=== PATIENT | male | born 1975 | race Caucasian/White ===

== ENCOUNTER 2017-11-07 12:50 | Emergency (ER) | payer OTHER ==
[2017-11-07 13:04] VITALS: BMI 29.9
--- NOTE | 2017-11-07 13:51 | PDOC ---
History of Present Illness - General History Source: Patient Exam Limitations: No Limitations <Danny Neves - Last Filed: 11/07/17 15:39> <Trevon Perez - Last Filed: 11/07/17 16:40> <Danette Denton - Last Filed: 11/07/17 19:11> - General Chief Complaint: Chest Pain Stated Complaint: CHEST PAIN Time Seen by Provider: 11/07/17 13:37 - History of Present Illness Initial Comments: 11/07/17 15:39 The patient is a 42 year old male with a significant PMH of HTN and hyperlipidemia who presents to the emergency department with left sided chest pain beginning approximately 2 hours ago. The patient describes his chest pain as intermittent brief episodes of a burning sensation localized in the left side with no radiation, which is non-exertional and has no aggravating or remitting factors. He reports sitting on the couch this morning and feeling a sudden onset of this burning left sided chest pain which lasted about 3 seconds before resolving. The patient also endorses some nausea since this morning while trying to eat eggs but denies vomiting. Pt did note that he had 3 margaritas last night and isnt sure if that had anything to do with it. The patient reports missing his HTN medications yesterday and drinking about 3 margaritas last night. He reports taking his medication after his initial episode of chest pain this morning. The patient notes receiving an Echo about 3 months ago which was normal. The patient denies shortness of breath or diaphoresis. He denies palpitations. He denies recent travel or leg swelling. Family history is pertinent for HTN. The patient denies headache and dizziness. Denies fever, chills, diarrhea and constipation. Denies dysuria, frequency, urgency and hematuria. Allergies: NKA Past surgical history: None reported. Social history: Social alcohol use. No reported cigarette or drug use. Cardio: Dr. Rodriguez (in [place]) (Danny Neves) Past History <Danny Neves - Last Filed: 11/07/17 15:39> - Past Medical History COPD: No HTN: Yes Hypercholesterolemia: Yes - Suicide/Smoking/Psychosocial Hx Smoking History: Never smoked Have you smoked in the past 12 months: No Information on smoking cessation initiated: No Hx Alcohol Use: No Drug/Substance Use Hx: No Substance Use Type: None <Trevno Perez - Last Filed: 11/07/17 16:40> <Danette Denton - Last Filed: 11/07/17 19:11> - Past Medical History Allergies/Adverse Reactions: Allergies Allergy/AdvReac Type Severity Reaction Status Date / Time No Known Allergies Allergy Verified 01/22/16 16:46 Home Medications: Ambulatory Orders Amlodipine Besylate/Benazepril [Lotrel 10-20 mg Capsule] 1 cap PO DAILY Atorvastatin Calcium 80 mg PO DAILY 11/07/17 Ranitidine HCl [Zantac 75] 75 mg PO DAILY #14 tablet 11/07/17 Review of Systems - Review of Systems Able to Perform ROS?: Yes <Danny Neves - Last Filed: 11/07/17 15:39> <Trevon Perez - Last Filed: 11/07/17 16:40> <Danette Denton - Last Filed: 11/07/17 19:11> - Review of Systems Comments:: 11/07/17 15:40 All other systems reviewed and are negative except noted in HPI (Danny Neves) *Physical Exam <Danny Neves - Last Filed: 11/07/17 15:39> <Trevon Perez - Last Filed: 11/07/17 16:40> <Danette Denton - Last Filed: 11/07/17 19:11> - Vital Signs Last Vital Signs Temp Pulse Resp BP Pulse Ox 98.1 F 98 H 16 137/85 100 11/07/17 18:26 11/07/17 18:26 11/07/17 18:26 11/07/17 18:26 11/07/17 18:26 - Physical Exam Comments: 11/07/17 15:40 GENERAL: The patient is awake, alert, and fully oriented, Nontoxic - in no acute distress. HEAD: Normocephalic, atraumatic. EYES: extraocular movements intact, sclera anicteric, conjunctiva clear. ENT: Normal voice, Moist mucous membranes. NECK: Normal range of motion, supple LUNGS: Breath sounds equal, clear to auscultation bilaterally. No wheezes, no rhonchi, no rales. HEART: Regular rate and rhythm, without murmur, rub or gallop. ABDOMEN: Soft, nontender, normoactive bowel sounds. No guarding, no rebound.No CVA tenderness EXTREMITIES: Normal range of motion, no edema. No clubbing or cyanosis. No cords , erythema, or tenderness. NEUROLOGICAL: No facial asymmetry, Normal speech, PSYCH: Normal mood, normal affect. SKIN: Warm, Dry, normal turgor. (Danny Neves) Heart Score/ECG Review <Danny Neves - Last Filed: 11/07/17 15:39> <Trevon Perez - Last Filed: 11/07/17 16:40> <Danette Denton - Last Filed: 11/07/17 19:11> - ECG Impressions Comment:: 11/07/17 13:55 Twelve-lead EKG was performed and reviewed by me. There is normal sinus rhythm with a normal rate. rate of 93 Left axis devaition (Trevon Perez) ED Treatment Course - LABORATORY CBC & Chemistry Diagram: 11/07/17 14:11 11/07/17 14:11 <Danny Neves - Last Filed: 11/07/17 15:39> - LABORATORY CBC & Chemistry Diagram: 11/07/17 14:11 11/07/17 14:11 <Trevon Perez - Last Filed: 11/07/17 16:40> - LABORATORY CBC & Chemistry Diagram: 11/07/17 14:11 11/07/17 14:11 <Danette Denton - Last Filed: 11/07/17 19:11> - ADDITIONAL ORDERS Additional order review: Laboratory Results 11/07/17 11/07/17 18:10 14:11 Sodium 140 Potassium 3.9 Chloride 101 Carbon Dioxide 27 Anion Gap 12 BUN 12 Creatinine 1.1 Creat Clearance w eGFR > 60 Random Glucose 111 H Calcium 9.1 Total Bilirubin 0.4 AST 22 ALT 32 Alkaline Phosphatase 133 H Creatine Kinase 262 283 Creatine Kinase Index 0.9 CK-MB (CK-2) 2.605 Troponin I < 0.02 < 0.02 Total Protein 8.1 Albumin 4.0 Lipase 79 11/07/17 14:11 RBC 5.39 MCV 84.9 MCHC 34.0 RDW 13.3 MPV 8.5 Neutrophils % 71.2 Lymphocytes % 20.1 Monocytes % 7.0 Eosinophils % 1.3 Basophils % 0.4 - Medications Given in the ED: ED Medications Discontinued Medications Generic Name Dose Route Start Last Admin Trade Name Wilfredo PRN Reason Stop Dose Admin Al Hydroxide/Mg Hydroxide 30 ml 11/07/17 13:54 11/07/17 14:24 Mylanta Suspension - PO 11/07/17 13:55 30 ml ONCE ONE Administration Aspirin 162 mg 11/07/17 13:54 11/07/17 14:24 Asa - PO 11/07/17 13:55 162 mg ONCE ONE Administration Famotidine/Sodium Chloride 20 50 mls @ 100 mls/hr 11/07/17 13:54 11/07/17 14: 24 mg/ Miscellaneous IVPB 11/07/17 14:23 100 mls/hr ONCE ONE Administration Medical Decision Making <Danny Neves - Last Filed: 11/07/17 15:39> <Trevon Perez - Last Filed: 11/07/17 16:40> <Danette Denton - Last Filed: 11/07/17 19:11> - Medical Decision Making 11/07/17 14:17 42y M hx of htn, hl, presents with complaint of L sided chest pain. Pt describes the pain as a burning pain in the L chest that is nonradiating, intermittnt, lasting for a fe seconds before resolving without associated n/v, diaphoresis, sob. No prior episodes of this pain in the past. No worsening o fpain on ambulation/exertion. Pt currently asypmtomatic. pt ornelas snote he drank a couple of margaritas last night, and felt mildly nauesu when he was eating breakfast this morning. pts exam unremarkble and pt is in no distress ddx includes pancreatitis, gastritis, acs will ck cbc, cmp, lipase will give pepcid/maalox will give asa ekg nonischemic will obtian trop x 2 will reassess A portion of this note was documented by scribe services under my direction. I have reviewed the details of the note, within reason, and agree with the documentation with the following case summary and management plan written by me 11/07/17 16:32 The patient's blood work was unremarkable. The patient remains asymptomatic Will obtain repeat troponin at 6pm. if neg will dc pt with pmd fu Will signout the patient to Dr. Denton to follow up with repeat troponin reassess the patient (Trevon Perez) *DC/Admit/Observation/Transfer <Danny Neves - Last Filed: 11/07/17 15:39> <Trevon Perez - Last Filed: 11/07/17 16:40> <BertinDanette Yennifer - Last Filed: 11/07/17 19:11> Diagnosis at time of Disposition: Atypical chest pain Gastritis Qualifiers: Gastritis type: unspecified gastritis Chronicity: unspecified Gastritis bleeding: without bleeding Qualified Code(s): K29.70 - Gastritis, unspecified, without bleeding - Discharge Dispostion Disposition: HOME Condition at time of disposition: Stable - Prescriptions Prescriptions: Ranitidine HCl [Zantac 75] 75 mg PO DAILY #14 tablet - Patient Instructions Printed Discharge Instructions: DI for Atypical Chest Pain Additional Instructions: please follow up with your mattress stuffer - Attestations Scribe Attestion: 11/07/17 15:40 Documentation prepared by Danny Neves, acting as medical office manager for Trevon Perez MD. (Danny Neves)
[2017-11-07] MEDS ORDERED: FAMOTIDINE 20 MG/50 ML IVPB 20 MG in PREMIX 50 IVPB ONE (13:54)
[2017-11-07] MEDS ORDERED: MAG HYDROX/AL HYDROX/SIMETH 355 ML ORAL.SUSP PO ONE (13:54)
[2017-11-07] MEDS ORDERED: ASPIRIN 81 MG CHEWABLE TABLETS PO ONE (13:54)
[2017-11-07] MEDS ORDERED: FAMOTIDINE 20 MG/50 ML IVPB 20 MG/50 ML MG IVPB ONE (14:02)
[2017-11-07] MEDS ORDERED: ASPIRIN 81 MG CHEWABLE TABLETS ONE (14:02)
[2017-11-07] MEDS ORDERED: MAG HYDROX/AL HYDROX/SIMETH 30 ML UNIT-DOSE CUP ONE (14:02)
[2017-11-07 14:29] LABS: BASO % 0.4 % (0-2.0); EOS % 1.3 % (0-4.5); HEMATOCRIT 45.7 % (35.4-49); HEMOGLOBIN 15.6 GM/dL (11.7-16.9); LYMPH % 20.1 % (8-40); MCH 28.9 pg (25.7-33.7); MEAN CELL VOLUME 84.9 fl (80-96); MEAN PLT VOLUME 8.5 fl (7.5-11.1); NEUT % 71.2 % (42.8-82.8); PLATELET COUNT 208 K/MM3 (134-434); RBC 5.39 M/mm3 (4.00-5.60); RDW 13.3 % (11.9-15.9)
[2017-11-07 14:54] LABS: ANION GAP 12 (8-16); BILIRUBIN,TOTAL 0.4 mg/dL (0.2-1.0); BLOOD UREA NITROGEN 12 mg/dL (7-18); CALCIUM 9.1 mg/dL (8.5-10.1); CHLORIDE 101 mmol/L (98-107); CO2 27 mmol/L (21-32); CREATININE 1.1 mg/dL (0.7-1.3); GLUCOSE,RANDOM 111 mg/dL (74-106); LIPASE 79 U/L (73-393); POTASSIUM 3.9 mmol/L (3.5-5.1); SGOT/AST 22 U/L (15-37); SGPT/ALT 32 U/L (12-78); SODIUM 140 mmol/L (136-145); TOT PROT 8.1 g/dl (6.4-8.2)
[2017-11-07 14:57] LABS: ALK PHOS 133 U/L (45-117)
[2017-11-07 18:27] VITALS: BP 137/85; PULSE 98; TEMP 98.1
--- NOTE | 2017-11-08 10:46 | EKG ---
Test Reason : Blood Pressure : / mmHG Vent. Rate : 093 BPM Atrial Rate : 093 BPM P-R Int : 172 ms QRS Dur : 090 ms QT Int : 356 ms P-R-T Axes : 061 -43 053 degrees QTc Int : 442 ms NORMAL SINUS RHYTHM LEFT AXIS DEVIATION ABNORMAL ECG NO PREVIOUS ECGS AVAILABLE Confirmed by KELSEY RAMSAY, MARIZA ([id number]) on 11/08/2017 10:46:15 AM Referred By: Confirmed By:MARIZA COLE MD
== END 2017-11-07 19:25 | disposition home or self-care (01) ==
LOC: JER 12:50
PROC: 3E033GC Introduction of Other Therapeutic Substance into Peripheral Vein, Percutaneous Approach (ICD-10-PCS; principal; 2017-11-07)
DX: R07.89 Other chest pain (principal); K29.70 Gastritis, unspecified, without bleeding
CPT/HCPCS: 36415; 71045-TC-FY; 80053; 82550; 82553; 83690; 84484; 85025; 93005; 93010; 99285-25

== ENCOUNTER 2018-10-07 04:56 | Emergency (ER) | payer OTHER ==
[2018-10-07 05:08] VITALS: TEMP 97.9; BMI 26.5
[2018-10-07] MEDS ORDERED: ASPIRIN 81 MG CHEWABLE TABLETS PO ONE (05:16)
--- NOTE | 2018-10-07 05:24 | PDOC ---
History of Present Illness - General Chief Complaint: Chest Pain Stated Complaint: CHEST PAIN Time Seen by Provider: 10/07/18 05:08 History Source: Patient Exam Limitations: No Limitations - History of Present Illness Initial Comments: 10/07/18 05:20 Patient is a 43M with history of HTN and HLD here today complaining of chest pain that onset at about 3 am this morning. Patient states that he woke up from sleep on his own, then started feeling a pressure like pain in his left aspect of his chest. The pain is improved with rest. There is no change with exertion, arm movement or inspiration. Denies fevers, chills, nausea, vomiting, cough. Denies leg swelling, history of blood clots, recent travel. Past History - Past Medical History Allergies/Adverse Reactions: Allergies Allergy/AdvReac Type Severity Reaction Status Date / Time No Known Allergies Allergy Verified 10/07/18 05:07 Home Medications: Ambulatory Orders Amlodipine Besylate/Benazepril [Lotrel 10-20 mg Capsule] 1 cap PO DAILY Atorvastatin Calcium 80 mg PO DAILY 11/07/17 Ranitidine HCl [Zantac 75] 75 mg PO DAILY #14 tablet 11/07/17 COPD: No HTN: Yes Hypercholesterolemia: Yes - Suicide/Smoking/Psychosocial Hx Smoking History: Never smoked Have you smoked in the past 12 months: No Information on smoking cessation initiated: No Hx Alcohol Use: No Drug/Substance Use Hx: No Substance Use Type: None Review of Systems - Review of Systems Comments:: 10/07/18 05:21 GENERAL/CONSTITUTIONAL: No fever or chills. No weakness. HEAD, EYES, EARS, NOSE AND THROAT: No change in vision. No sore throat. CARDIOVASCULAR: +chest pain no shortness of breath RESPIRATORY: No cough, wheezing, or hemoptysis. GASTROINTESTINAL: No nausea, vomiting, diarrhea or constipation. GENITOURINARY: No dysuria, frequency, or change in urination. MUSCULOSKELETAL: No joint or muscle swelling or pain. No neck or back pain. SKIN: No rash NEUROLOGIC: No headache, vertigo, loss of consciousness, or change in strength/ sensation. ENDOCRINE: No increased thirst. No abnormal weight change HEMATOLOGIC/LYMPHATIC: No anemia, easy bleeding, or history of blood clots. ALLERGIC/IMMUNOLOGIC: No hives or skin allergy. *Physical Exam - Vital Signs Last Vital Signs Temp Pulse Resp BP Pulse Ox 97.9 F 93 H 18 153/108 H 100 10/07/18 05:07 10/07/18 05:07 10/07/18 05:07 10/07/18 05:07 10/07/18 05:07 - Physical Exam Comments: 10/07/18 05:22 GENERAL: Awake, alert, and fully oriented, in no acute distress HEAD: No signs of trauma, normocephalic, atraumatic EYES: PERRLA, EOMI, sclera anicteric, conjunctiva clear NECK: Normal ROM, supple, no lymphadenopathy, JVD, or masses LUNGS: No distress, speaks full sentences, clear to auscultation bilaterally HEART: Regular rate and rhythm, normal S1 and S2, no murmurs, rubs or gallops, peripheral pulses normal and equal bilaterally. ABDOMEN: Soft, nontender, normoactive bowel sounds. No guarding, no rebound. No masses EXTREMITIES: Normal inspection, Normal range of motion, no edema. No clubbing or cyanosis. NEUROLOGICAL: Cranial nerves II through XII grossly intact. Normal speech, no focal sensorimotor deficits SKIN: Warm, Dry, normal turgor, no rashes or lesions noted. Moderate Sedation - Procedure Monitoring Vital Signs: Procedure Monitoring Vital Signs Temperature 97.9 F 10/07/18 05:07 Pulse Rate 93 H 10/07/18 05:07 Respiratory Rate 18 10/07/18 05:07 Blood Pressure 153/108 H 10/07/18 05:07 O2 Sat by Pulse Oximetry (%) 100 10/07/18 05:07 Heart Score/ECG Review - History History: Slightly suspicious - Electrocardiogram EKG: Normal - Age Age: </= 45 - Risk Factors Risk Factors Heart Score: Yes Hx Hypercholesterolemia, Yes Hx Hypertension Based on the list above the patient has:: 1-2 risk factors - Troponin Troponin: </= normal limit - Score Heart Score - Total: 1 ED Treatment Course - LABORATORY CBC & Chemistry Diagram: 10/07/18 05:36 10/07/18 05:36 - RADIOLOGY Radiology Studies Ordered: Category Date Time Status CHEST PA & LAT [RAD] Stat Radiology 10/07/18 05:16 Ordered Medical Decision Making - Medical Decision Making 10/07/18 05:22 Patient is a 43M with history of HTN and HLD here today with chest pain. Vitals stable. EKG shows normal sinus rhythm with rate of 76. No st elevations/depressions. Left axis, stable compared to prior ekg. Normal intervals. No significant t wave changes. DDx includes, but is not limited to: msk pain, arrhythmia, acs. HEART score 1 pending trop. Given recent onset of symptoms, will draw second trop. Likely discharge, patient has outpatient convertible top installer. *DC/Admit/Observation/Transfer Diagnosis at time of Disposition: Chest pain - Discharge Dispostion Disposition: HOME Condition at time of disposition: Good Decision to Admit order: No - Referrals - Patient Instructions Printed Discharge Instructions: DI for Chest Pain Additional Instructions: Please follow up with your convertible top installer this week. Please return if you have any new, worsening or concerning symptoms, especially increasing pain, fever, and shortness of breath. - Post Discharge Activity
[2018-10-07 06:01] LABS: BASO % 0.6 % (0-2.0); EOS % 1.3 % (0-4.5); HEMATOCRIT 43.8 % (35.4-49); LYMPH % 28.7 % (8-40); MCH 29.1 pg (25.7-33.7); MCHC 34.3 g/dl (32.0-35.9); MEAN CELL VOLUME 84.7 fl (80-96); MEAN PLT VOLUME 8.3 fl (7.5-11.1); MONO % 8.4 % (3.8-10.2); PLATELET COUNT 195 K/MM3 (134-434); RBC 5.17 M/mm3 (4.00-5.60); RDW 13.8 % (11.9-15.9); WHITE BLOOD COUNT 6.6 K/mm3 (4.0-10.0)
--- NOTE | 2018-10-07 06:01 | PDOC ---
Attending Attestation - Resident Resident Name: Bertin Hastings - ED Attending Attestation I have performed the following: I have examined & evaluated the patient, The case was reviewed & discussed with the resident, I agree w/resident's findings & plan, Exceptions are as noted - HPI HPI: 10/07/18 07:01 43M pmh htn, hld here with L sided pressure like px starting 3am. Non-radiating , non-exertional no associated symptoms - Physicial Exam PE: 10/07/18 07:02 NAD, AOx3 NCAT, PERRL, EOMI RRR LCTAB, no rash, no point tenderness Abd soft, nt, nd, no guarding BRYAN, NFD - Medical Decision Making 10/07/18 07:02 Atypical cp in low risk pt, first trop neg, sample was within 2 hours of symptom onset ekg non-ischemic f/u 2nd trop, if neg, safe for dc home, low risk of MACE
[2018-10-07 06:16] LABS: ALBUMIN 3.9 g/dl (3.4-5.0); ALK PHOS 96 U/L (45-117); ANION GAP 7 MMOL/L (8-16); BILIRUBIN,TOTAL 0.4 mg/dL (0.2-1); BLOOD UREA NITROGEN 16 mg/dL (7-18); CALCIUM 8.3 mg/dL (8.5-10.1); CHLORIDE 105 mmol/L (98-107); CO2 28 mmol/L (21-32); CREATININE 1.1 mg/dL (0.55-1.3); GLUCOSE,RANDOM 112 mg/dL (74-106); POTASSIUM 3.6 mmol/L (3.5-5.1); SGOT/AST 18 U/L (15-37); SGPT/ALT 24 U/L (13-61); SODIUM 139 mmol/L (136-145); TOT PROT 7.4 g/dl (6.4-8.2)
[2018-10-07 06:31] LABS: INR 1.03 (0.83-1.09); PROTHROMBIN TIME (PATIENT) 12.1 SEC (9.7-13.0)
--- NOTE | 2018-10-07 07:03 | PDOC ---
*Physical Exam - Vital Signs Last Vital Signs Temp Pulse Resp BP Pulse Ox 97.9 F 93 H 18 153/108 H 100 10/07/18 05:07 10/07/18 05:07 10/07/18 05:07 10/07/18 05:07 10/07/18 05:07 - Physical Exam Comments: GENERAL: Awake, alert, and fully oriented, in no acute distress HEAD: No signs of trauma, normocephalic, atraumatic NEUROLOGICAL: Normal speech, normal gait, no focal sensorimotor deficits SKIN: Warm, Dry ED Treatment Course - LABORATORY CBC & Chemistry Diagram: 10/07/18 05:36 10/07/18 05:36 - ADDITIONAL ORDERS Additional order review: Laboratory Results 10/07/18 10/07/18 05:36 05:36 PT with INR 12.10 INR 1.03 Sodium 139 Potassium 3.6 Chloride 105 Carbon Dioxide 28 Anion Gap 7 L BUN 16 Creatinine 1.1 Creat Clearance w eGFR > 60 Random Glucose 112 H Calcium 8.3 L Magnesium 2.0 Total Bilirubin 0.4 AST 18 ALT 24 Alkaline Phosphatase 96 Creatine Kinase 233 Creatine Kinase Index 1.0 CK-MB (CK-2) 2.5 Troponin I < 0.02 Total Protein 7.4 Albumin 3.9 - Medications Given in the ED: ED Medications Discontinued Medications Generic Name Dose Route Start Last Admin Trade Name Wilfredo PRN Reason Stop Dose Admin Aspirin 162 mg 10/07/18 05:16 10/07/18 05:31 Asa - PO 10/07/18 05:17 162 mg ONCE ONE Administration Medical Decision Making - Medical Decision Making The patient is a 43M who presented for evaluation of chest pain Patient pending second Trop I 10/07/18 07:02 Repeat Trop I negative Patient asymptomatic at time of result Plan for D/C w/ PCP and cards f/u Discharge instructions and return precautions given Patient in agreement and verbalized understanding Dispo: Home *DC/Admit/Observation/Transfer Diagnosis at time of Disposition: Chest pain Qualifiers: Chest pain type: unspecified Qualified Code(s): R07.9 - Chest pain, unspecified - Discharge Dispostion Disposition: HOME Condition at time of disposition: Good Decision to Admit order: No - Referrals Referrals: [facility] [place] [facility] [place] [Provider Group] Pavel Kowalski MD [Staff Physician] - - Patient Instructions Printed Discharge Instructions: DI for Chest Pain Additional Instructions: Please follow up with your return to vendor this week. Please return if you have any new, worsening or concerning symptoms, especially increasing pain, fever, vision changes, and shortness of breath. - Post Discharge Activity Forms/Work/School Notes: Back to Work
[2018-10-07 08:12] VITALS: BP 131/86; PULSE 74
--- NOTE | 2018-10-07 11:50 | EKG ---
Test Reason : Blood Pressure : / mmHG Vent. Rate : 076 BPM Atrial Rate : 076 BPM P-R Int : 164 ms QRS Dur : 088 ms QT Int : 370 ms P-R-T Axes : 069 -31 038 degrees QTc Int : 416 ms NORMAL SINUS RHYTHM LEFT AXIS DEVIATION ABNORMAL ECG WHEN COMPARED WITH ECG OF 07-NOV-2017 13:00, NO SIGNIFICANT CHANGE WAS FOUND Confirmed by LONDON DOMINGUEZ MD ([id number]) on 10/07/2018 11:50:12 AM Referred By: Confirmed By:LONDON DOMINGUEZ MD
== END 2018-10-07 09:35 | disposition home or self-care (01) ==
LOC: JER 04:56
DX: R07.9 Chest pain, unspecified (principal); I10 Essential (primary) hypertension; E78.5 Hyperlipidemia, unspecified
CPT/HCPCS: 36415; 71046-TC-FY; 80053; 82550; 82553; 83735; 84484; 85025; 85610; 93005; 93010; 99282-25